=== PATIENT | female | born 1970 | race Caucasian/White ===

== ENCOUNTER 2018-02-06 21:32 | Emergency (ER) | payer MEDICAID ==
[~2018-02-06] VITALS: Ht 177.8 cm; Wt 77.1 kg
[2018-02-07] MEDS ORDERED: CEPHALEXIN500 MG PO (00:08)
== END 2018-02-07 00:51 | disposition home or self-care (01) ==
LOC: ED 21:32
DX: R10.30 Lower abdominal pain, unspecified (principal); Z88.2 Allergy status to sulfonamides; Z88.0 Allergy status to penicillin
CPT/HCPCS: 74176; 80053; 81001; 85025; 87088; 96374; 96375; 96376; 99284; J0696; J1170; J1885; J2405